=== PATIENT | female | born 1950 | race Caucasian/White ===

== ENCOUNTER → 2023-06-04 13:08 | Outpatient (REF) | payer MEDICARE, OTHER, SELFPAY | LOC: WDC 13:08 | PROVIDERS: ATTENDING PHYSICIAN Obstetrics & Gynecology; FAMILY PHYSICIAN Family Medicine | DX: Z12.31 Encounter for screening mammogram for malignant neoplasm of breast (principal) | CPT/HCPCS: 77063; 77067 ==

== ENCOUNTER → 2023-06-13 14:16 | Outpatient (REF) | payer MEDICARE, OTHER, SELFPAY | LOC: HWRAD 14:16 | PROVIDERS: ATTENDING PHYSICIAN Obstetrics & Gynecology; FAMILY PHYSICIAN Family Medicine | DX: Z78.0 Asymptomatic menopausal state (principal) | CPT/HCPCS: 77080 ==

== ENCOUNTER → 2024-02-27 11:10 | Outpatient (REF) | payer MEDICARE, OTHER, SELFPAY | LOC: MRI 3T 11:10 | PROVIDERS: ATTENDING PHYSICIAN Pain Medicine Interventional Pain Medicine; PRIMARYCARE PHYSICIAN Family Medicine | DX: M54.16 Radiculopathy, lumbar region (principal) | CPT/HCPCS: 72148 ==

== ENCOUNTER → 2024-04-03 07:55 | Outpatient (REF) | payer MEDICARE, OTHER, SELFPAY ==
[2024-04-03 09:02] LABS: % Basophils 0.6 % (0-2); % Eosinophils 1.8 % (0-6); % Immature Granulocytes 0.2 % (0-0.5); % Lymphocytes 34.2 % (20.5-51.1); % Monocytes 9.9 % (1.7-9.3); % Neutrophils 53.3 % (42.2-75.2); Absolute Eosinophils 0.1 10^3/uL (0-0.7); Absolute Lymphocytes 1.7 10^3/uL (1.2-3.4); Absolute Monocytes 0.5 10^3/uL (0.1-0.6); Absolute Neutrophils 2.7 10^3/uL (1.4-6.5); Hematocrit 42.3 % (37.0-47.0); Hemoglobin 14.4 g/dL (12.0-16.0); Mean Corpuscular Hgb 29.9 pg (27.0-31.0); Mean Corpuscular Volume 87.8 fL (81.0-99.0); Mean Platelet Volume 10.6 fL (7.4-10.4); Nucleated Red Blood Cells % 0 %; Platelet Count 288 10^3/uL (130-400); Red Blood Cell Count 4.82 10^6/uL (4.20-5.40)
[2024-04-03 09:22] LABS: Glycohemoglobin (HgbA1c) 5.4 % (4.0-5.6)
[2024-04-03 10:04] LABS: ALT (SGPT) 20 U/L (0-35); AST (SGOT) 25 U/L (14-36); Albumin 4.8 g/dl (3.5-5.0); Alkaline Phosphatase 74 U/L (38-126); Blood Urea Nitrogen 23 mg/dl (7-17); Calcium 9.7 mg/dl (8.4-10.2); Carbon Dioxide 26 mmol/L (22-30); Chloride 100 mmol/L (98-107); Glucose 82 mg/dl (70-99); HDL Cholesterol 96 mg/dl; LDL Cholesterol, Calculated 121 mg/dl; Potassium 4.8 mmol/L (3.5-5.1); Sodium 137 mmol/L (135-145); Total Bilirubin 0.7 mg/dl (0.2-1.3); Total Cholesterol 230 mg/dl (50-199); Triglyceride 69 mg/dl (10-149); Very Low Density Lipoprotein 13 mg/dl (0-30); eGFR > 60.00
[2024-04-03 10:27] LABS: TSH Reflex To Free T4 0.42 uIU/ml (0.47-4.68)
[2024-04-03 10:45] LABS: Hepatitis C Antibody Negative (Negative)
[2024-04-03 10:57] LABS: Free T4 1.57 ng/dl (0.78-2.19)
== END ==
LOC: REG 07:55
PROVIDERS: ATTENDING PHYSICIAN Family Medicine
DX: R79.9 Abnormal finding of blood chemistry, unspecified (principal); Z01.89 Encounter for other specified special examinations; Z79.899 Other long term (current) drug therapy
CPT/HCPCS: 36415; 80053; 80061; 83036; 84439; 84443; 85025; 86803

== ENCOUNTER → 2024-04-20 07:23 | Outpatient (REF) | payer MEDICARE, OTHER, SELFPAY | LOC: HWRAD 07:23 | PROVIDERS: ATTENDING PHYSICIAN Family Medicine | DX: K82.4 Cholesterolosis of gallbladder (principal) | CPT/HCPCS: 76700 ==

== ENCOUNTER → 2024-04-30 06:58 | Outpatient (REF) | payer MEDICARE, OTHER, SELFPAY | LOC: RAD 06:58 | PROVIDERS: ATTENDING PHYSICIAN Family Medicine | DX: N28.89 Other specified disorders of kidney and ureter (principal) | CPT/HCPCS: 74178; Q9967 ==

== ENCOUNTER 2024-06-04 06:10 | Day surgery (SDC) | payer MEDICARE, OTHER, SELFPAY ==
[2024-06-04] VITALS (12 sets, daily range): BP systolic 89–129; BP diastolic 52–83; BMI 23.6
[2024-06-04] MEDS: NORMOSOL-R/PLASMALYTE-A 1000 IV (07:06)
[2024-06-04] MEDS: EMEND 40 MG PO (07:21)
[2024-06-04] MEDS: DILAUDID 0.5 MG IV (12:01)
[2024-06-04 12:06] LABS: Hematocrit 40.4 % (37.0-47.0); Hemoglobin 13.6 g/dL (12.0-16.0); Mean Corp Hgb Conc. 33.7 g/dL (33.0-37.0); Mean Corpuscular Hgb 30.1 pg (27.0-31.0); Mean Corpuscular Volume 89.4 fL (81.0-99.0); Mean Platelet Volume 9.7 fL (7.4-10.4); Platelet Count 281 10^3/uL (130-400); Red Blood Cell Count 4.52 10^6/uL (4.20-5.40); Red Cell Dist. Width 12.4 % (11.5-14.5); White Blood Cell Count 11.3 10^3/uL (4.8-10.8)
[2024-06-04] MEDS: NSS 1000 IV ×2 (12:48→20:01)
--- NOTE | 2024-06-04 12:51 | PTCARENOTE ---
Pt arrived to floor in bed from PACU; Drowsy but easily arousable to voice; AAO x3; Reports pain 6/10 throughout abd but states that pain improved with recent pain medication; Lungs CTA, shallow breaths; Reg apical; no edema; + pulses; 3
lapsites on R abd and one horizontal incision site above umbilicus glued and open to air. Oriented to room, call lee within reach; Will continue to monitor and assess.
[2024-06-04] MEDS: TAMBOCOR 50 MG PO ×2 (13:34→22:38)
[2024-06-04] MEDS: LEXAPRO 10 MG PO (18:02)
[2024-06-04] MEDS: LIPITOR 10 MG PO (18:02)
[2024-06-04] MEDS: PERCOCET 5/325 1 TABLET PO ×2 (18:03→22:38)
[2024-06-04] MEDS: SENOKOT 17.2 MG PO (20:01)
[2024-06-05] MEDS: PERCOCET 5/325 1 TABLET PO (03:11)
[2024-06-05 03:13] VITALS: BP 99/58
[2024-06-05] MEDS: SYNTHROID 150 MCG PO (05:57)
--- NOTE | 2024-06-05 07:20 | W.PN.URO.CBU ---
Today's Communication / Plan
-
- regular diet
- PO analgesics prn (NSAIDs advised over opioids)
- OOB w/ ambulation
- Discharge home later today
Assessment / Plan
-
Right renal mass suspicious for malignancy
06/04: s/p right RAPN
PACU labs WNL
Pain minimal and well-controlled on PO analgesics
Smith catheter removed this AM
Diagnosis
-
Date of Service: June 05, 2024
-
Patient Diagnosis:
Right renal mass
Post Op Day:
06/04: s/p right RAPN
Subjective
-
Incisional pain improved overnight.
Denies N/V.
Smith catheter removed w/o event this AM.
Objective
-
Vital Signs
Temp Pulse Resp BP Pulse Ox
98.8 F 78 16 99/58 95
06/05/24 03:13 06/05/24 03:13 06/05/24 03:13 06/05/24 03:13 06/05/24 03:13
Intake and Output
06/04/24 06/05/24 06/06/24
06:59 06:59 06:59
Intake Total 2370 / 2370
Output Total 1600 / 1600
Balance 770 / 770
Intake:
Oral fluids 1120 / 1120
IV fluids (Total) 1250 / 1250
Output:
Urine, Smith 1600 / 1600
Laboratory Results
06/05/24 06:38
06/05/24 06:38
Physical Exam
-
General - well developed, well nourished, no acute distress
Abdomen - soft, appropriately tender over robotic incisions, non-distended, incisions c/d/i
Skin - warm & dry with no rash
Neuro - AOx3, no motor deficits
Extremities - no clubbing, no cyanosis, no edema
Care Review
Data Reviewed
Discussed with: Nursing
CT Scan: Report Pers Reviewed and Image Pers Reviewed
Total Time Spent with Patient (in minutes): 25
[2024-06-05 07:41] LABS: Hematocrit 33.9 % (37.0-47.0); Hemoglobin 11.3 g/dL (12.0-16.0); Mean Corp Hgb Conc. 33.3 g/dL (33.0-37.0); Mean Corpuscular Hgb 29.4 pg (27.0-31.0); Mean Corpuscular Volume 88.3 fL (81.0-99.0); Platelet Count 267 10^3/uL (130-400); Red Blood Cell Count 3.84 10^6/uL (4.20-5.40); Red Cell Dist. Width 12.5 % (11.5-14.5)
[2024-06-05 07:50] VITALS: BP 103/64
[2024-06-05 08:02] LABS: Blood Urea Nitrogen 18 mg/dl (7-17); Calcium 8.3 mg/dl (8.4-10.2); Carbon Dioxide 27 mmol/L (22-30); Chloride 105 mmol/L (98-107); Estimated Creatinine Clearance 65 ml/min; Glucose 86 mg/dl (70-99); Potassium 4.2 mmol/L (3.5-5.1); Sodium 138 mmol/L (135-145); eGFR > 60.00
[2024-06-05] MEDS: SENOKOT 17.2 MG PO (08:10)
[2024-06-05] MEDS: PROTONIX 40 MG PO (08:10)
[2024-06-05] MEDS: TYLENOL 650 MG PO (08:13)
--- NOTE | 2024-06-05 08:13 | W.DS.TRANS ---
DC Summary - Site Interpreter
-
Discharge Instructions:
Sleep Apnea Risk Low
Discharge Diagnosis/Procedures Right kidney tumor
Robotic right partial nephrectomy
Diet No restrictions
Activity No strenuous activity
Additional Activity avoid lifting, straining, and strenuous exercise
(heavy weights) for 4 weeks
[address] Restrictions As prior to admission
Bathing Restrictions None
Wound Care Gently rinse incisions in the shower. do not
scrub or pick off glue
Instructions:
Stand-Alone Forms:
Changes to Home Medications: No
Discharge Medications:
DC Medications w/original date entered in [employer]
flecainide 50 mg tablet 50 mg PO Q12H 09/28/20
levothyroxine 75 mcg tablet 150 mcg PO DAILY 09/28/20
Vitamin D3 1 dose PO DAILY 06/02/24
atorvastatin 10 mg tablet 10 mg PO QPM 06/02/24
escitalopram oxalate 10 mg tablet (Lexapro) 10 mg PO QPM 06/02/24
lansoprazole 30 mg capsule,delayed release (Prevacid) 30 mg PO DAILY 06/02/24
polyethylene glycol 3350 17 gram oral powder packet (Miralax) 17 g PO .EVERY OTHER DAY 06/02/24
oxycodone-acetaminophen 5 mg-325 mg tablet 1 tab PO Q4HPRN PRN moderate pain #15 tabs 06/04/24
peg 400-propylene glycol (PF) 0.4 %-0.3 % eye drops in a dropperette (Systane (PF)) 1 drp BOTH EYES QIDPRN PRN dry eyes 06/04/24
Home Medication Changes
Pending Results: Yes
Additional Pending Results:
surgical pathology
Total time spent discharging patient (in min): 55
[2024-06-05] MEDS: REFRESH EYE DROPS (PF) 1 DROPS OPHTH (08:14)
--- NOTE | 2024-06-05 10:03 | CM ---
CM reviewed medical records. CM met with patient in room. Patient confirmed demographics. Patient does not have a history of VN, SNF or DME. Patient is active with her PCP. Patient uses [facility] for medication services.
PLAN: Home with no needs.
== END 2024-06-05 10:57 | disposition home or self-care (01) ==
LOC: SDS 06:10
PROVIDERS: ATTENDING PHYSICIAN Urology
DX: D30.01 Benign neoplasm of right kidney (principal)
CPT/HCPCS: 50543; 88305; 88307; 88332; 80048; 85027; 86850; 86900; 86901; 88331; 88341; 88342

== ENCOUNTER → 2024-06-30 15:24 | Outpatient (REF) | payer MEDICARE, OTHER, SELFPAY ==
[2024-06-30 17:15] LABS: ALT (SGPT) 19 U/L (0-35); AST (SGOT) 22 U/L (14-36); Albumin 4.9 g/dl (3.5-5.0); Alkaline Phosphatase 102 U/L (38-126); Blood Urea Nitrogen 16 mg/dl (7-17); Calcium 9.6 mg/dl (8.4-10.2); Carbon Dioxide 28 mmol/L (22-30); Chloride 103 mmol/L (98-107); Glucose 77 mg/dl (70-99); HDL Cholesterol 94 mg/dl; LDL Cholesterol, Calculated 63 mg/dl; Potassium 4.7 mmol/L (3.5-5.1); Sodium 140 mmol/L (135-145); Total Bilirubin 0.4 mg/dl (0.2-1.3); Total Cholesterol 172 mg/dl (50-199); Total Protein 7.1 g/dl (6.3-8.2); Triglyceride 78 mg/dl (10-149); Very Low Density Lipoprotein 15 mg/dl (0-30); eGFR > 60.00
[2024-06-30 17:45] LABS: TSH 0.34 uIU/ml (0.47-4.68)
== END ==
LOC: REG 15:24
PROVIDERS: ATTENDING PHYSICIAN Family Medicine
DX: E03.9 Hypothyroidism, unspecified (principal); E78.2 Mixed hyperlipidemia; N28.89 Other specified disorders of kidney and ureter
CPT/HCPCS: 36415; 80053; 80061; 84439; 84443

== ENCOUNTER → 2024-07-10 14:21 | Outpatient (REF) | payer MEDICARE, OTHER, SELFPAY ==
--- NOTE | 2024-06-04 11:41 | W.IMMPOSTOP ---
Surgical Immed Post Op Note
-
Primary Surgeon: Shamekafer
Assisting Surgeon: -
Pre-op Diagnosis: R renal mass
Post-op Diagnosis: same
Procedure Performed: Robotic R partial nephrectomy
Anesthesia Type: general
Specimen / Cultures: R renal mass
Estimated Blood Loss: 20cc
Complications: none
Operative Findings: 4cm mass, negative frozen margin at tumor base
== END | disposition home or self-care (01) ==
LOC: WDC 14:21
PROVIDERS: ATTENDING PHYSICIAN Obstetrics & Gynecology; FAMILY PHYSICIAN Family Medicine
DX: Z12.31 Encounter for screening mammogram for malignant neoplasm of breast (principal)
CPT/HCPCS: 77063; 77067

== ENCOUNTER → 2024-12-17 08:50 | Outpatient (REF) | payer MEDICARE, OTHER, SELFPAY ==
[2024-12-17 10:12] LABS: Iron 114 ug/dl (37-170)
[2024-12-17 10:16] LABS: Hematocrit 42.4 % (37.0-47.0); Hemoglobin 14.2 g/dL (12.0-16.0); Mean Corp Hgb Conc. 33.5 g/dL (33.0-37.0); Mean Corpuscular Volume 89.6 fL (81.0-99.0); Nucleated Red Blood Cells % 0 %; Platelet Count 329 10^3/uL (130-400); Red Cell Dist. Width 12.0 % (11.5-14.5)
[2024-12-17 10:22] LABS: Total Iron Binding Capacity 284 ug/dl (265-497)
[2024-12-17 11:23] LABS: Ferritin 100.0 ng/ml (11.1-264.0)
== END ==
LOC: REG 08:50
PROVIDERS: ATTENDING PHYSICIAN Family Medicine
DX: E03.9 Hypothyroidism, unspecified (principal); Z79.899 Other long term (current) drug therapy; Z01.89 Encounter for other specified special examinations; R79.9 Abnormal finding of blood chemistry, unspecified
CPT/HCPCS: 36415; 82668; 82728; 83540; 83550; 84443; 85025